=== PATIENT | male | born 1980 | race Caucasian/White ===

== ENCOUNTER 2023-01-23 14:15 | Emergency (ER) | payer OTHER ==
[~2023-01-23] VITALS: Ht 177.8 cm; Wt 84.4 kg
[2023-01-23 14:30] VITALS: BP 124/84
[2023-01-23] MEDS ORDERED: IBUP-2070 PO (15:35)
== END 2023-01-23 15:52 | disposition home or self-care (01) ==
LOC: EDH 14:15
DX: M70.32 Other bursitis of elbow, left elbow (principal); Y93.89 Activity, other specified
CPT/HCPCS: 99282